=== PATIENT | male | born 1990 | race Caucasian/White ===

== ENCOUNTER 2020-02-13 14:07 | Emergency (ER) | payer OTHER ==
[2020-02-13] MEDS ORDERED: Acetaminophen/oxyCODONE 325-10 MG Tab PO ONE (14:30)
--- NOTE | 2020-02-13 15:09 | CR ---
Indication: Pain behind scapula. Fell. Technique: PA view of the chest. Two views of the left ribs. Comparison: None Findings: The heart is normal size. The lungs are clear. No infiltrate, pleural effusion, or pneumothorax is identified. No displaced left rib fractures are identified. Please note, the lower ribs are not included on the study Impression: No displaced left rib fractures. No pneumothorax. Dictated by Delmi Logan MD @ Feb 13 2020 3:07PM Signed by Dr. Delmi Logan @ Feb 13 2020 3:08PM
--- NOTE | 2020-02-13 15:17 | EDM.PDOC ---
ED HPI GENERAL MEDICAL PROBLEM - General Chief Complaint: General Stated Complaint: SICK Time Seen by Provider: 02/13/20 14:09 Source of Information: Reports: Patient History Limitations: Reports: No Limitations - History of Present Illness INITIAL COMMENTS - FREE TEXT/NARRATIVE: HISTORY AND PHYSICAL: History of present illness: Patient is a 29-year-old male who presents to the emergency room with complaints of left lateral and posterior rib pain post fall. 2 to 3 days ago he was moving an ice auger and had slipped on the ice falling on top of the auger resulting in pain and bruising to the left lateral chest wall. States he has pain with movement, taking in deep breaths or attempting to cough. Patient denies any fever, chills, headache, change in vision, syncope or near syncope. Denies any back pain, shortness of breath, hemoptysis or cough. Denies any abdominal pain, nausea, vomiting, diarrhea, constipation or dysuria. Has not noted any blood in urine or stool. Patient has been eating and drinking appropriately. Review of systems: As per history of present illness and below otherwise all systems reviewed and negative. Past medical history: As per history of present illness and as reviewed below otherwise noncontributory. Surgical history: As per history of present illness and as reviewed below otherwise noncontributory. Social history: See social history for further information Family history: As per history of present illness and as reviewed below otherwise noncontributory. Physical exam: General: Well developed and well nourished. Alert and orientated x 3. Nontoxic in appearance and in no acute distress. Vital signs are stable and have been reviewed by me. Nursing notes were reviewed. HEENT: Atraumatic, normocephalic, pupils equal and reactive bilaterally, negative for conjunctival pallor or scleral icterus, mucous membranes moist, TMs normal bilaterally, throat clear, neck supple, nontender, trachea midline. No drooling or trismus noted. No meningeal signs. No hot potato voice noted. Lungs: Clear to auscultation, breath sounds equal bilaterally, chest tender to the left lateral and posterior distal chest wall (See SKIN). Normal work of breathing, no accessory muscles used. Heart: S1S2, regular rate and rhythm without overt murmur Abdomen: Soft, nondistended, nontender. Negative for masses or hepatosplenomegaly. Negative for costovertebral tenderness. Skin: Healing bruising noted to the left lateral chest wall. Otherwise skin is intact, warm, dry. No lesions or rashes noted. Hematologic: No petechiae or purpra. Mucosa appropriate color and normal nail bed color and refill. Extremities: Atraumatic, moves all extremities per self without difficulty or deficits. Neurovascular unremarkable. Neuro: Awake, alert, oriented. Cranial nerves II through XII unremarkable. Cerebellum unremarkable. Motor and sensory unremarkable throughout. Exam nonfocal. Psychiatric: Mood and affect are appropriate. Normal thought process. Answering questions appropriately. Notes: Chest x-ray shows no displaced fractures, acute injury or pneumothorax. I have talked with the patient about today's findings, in addition to providing specific details for plan of care. Patient was given education on incentive spirometer and use for home. Reassessment at the time of disposition demonstrates that the patient is in no acute distress. The patient is stable for discharge, counseling was provided and we discussed in great detail signs and symptoms that would prompt them to return to the Emergency Department. Medication, follow up and supportive care measures were reviewed and discussed. Voices understanding and is agreeable to plan of care. Denies any further questions or concerns at this time. Diagnostics: CXR w/ rib Therapeutics: Percocet, incentive spirometer Prescription: Percocet Impression: Rib injury, left Left chest contusion Plan: 1. Today your x-ray show no acute fractures. You may alternate ice/heat (which ever is most comfortable). Please avoid not taking deep breaths and coughing as this can cause complications down the road. I would like you to use the incentive spirometer 4-5 times daily, 10 round each time. 2. You can alternate Tylenol and ibuprofen as needed for pain management. Percocet for moderate to severe pain. This medication may cause drowsiness so do not take it while driving or needing to be functioning outside of the house. 3. We encourage you to follow up with your primary care provider and/or recommended specialist in the next few days for re-evaluation and further car e/management. If your symptoms should worsen, new symptoms develop or any of the signs and symptoms we discussed should arise please return to the emergency room or call 911 (if needed). Definitive disposition and diagnosis as appropriate pending reevaluation and review of above. L back Pain Score (Numeric/FACES): 8 - Related Data Allergies Allergy/AdvReac Type Severity Reaction Status Date / Time No Known Allergies Allergy Verified 02/13/20 14:35 Home Meds: Home Meds Acetaminophen/oxyCODONE [Percocet 325-10 MG] 1 tab PO Q6H PRN #15 tab 02/13/20 [Rx] Past Medical History Musculoskeletal History: Reports: None - Past Surgical History Musculoskeletal Surgical History: Reports: Other (See Below) Other Musculoskeletal Surgeries/Procedures:: R femoral fx Social & Family History - Family History Family Medical History: No Pertinent Family History - Tobacco Use Tobacco Use Status *Q: Never Tobacco User Second Hand Smoke Exposure: No - Caffeine Use Caffeine Use: Reports: Coffee - Recreational Drug Use Recreational Drug Use: No ED ROS GENERAL - Review of Systems Review Of Systems: Comprehensive ROS is negative, except as noted in HPI. ED EXAM, GENERAL - Physical Exam Exam: See Below (See dictation) Course - Vital Signs Last Recorded V/S: Last Vital Signs Temp 97.6 F 02/13/20 14:28 Pulse 81 02/13/20 14:28 Resp 18 02/13/20 14:28 BP 114/89 02/13/20 14:28 Pulse Ox 100 02/13/20 14:28 - Orders/Labs/Meds Meds: Medications Discontinued Medications Generic Name Dose Route Start Last Admin Trade Name Gerhard PRN Reason Stop Dose Admin Oxycodone/Acetaminophen 1 tab 02/13/20 14:30 Percocet 325-10 Mg PO 02/13/20 14:31 ONETIME ONE Departure - Departure Time of Disposition: 15:17 Disposition: Home, Self-Care 01 Clinical Impression: Rib injury Contusion of left chest wall Qualifiers: Encounter type: initial encounter Qualified Code(s): S20.212A - Contusion of left front wall of thorax, initial encounter - Discharge Information Prescriptions: Acetaminophen/oxyCODONE [Percocet 325-10 MG] 1 tab PO Q6H PRN #15 tab PRN Reason: Pain Instructions: Contusion, [id number] Referrals: PCP,None [Primary Care Provider] - Additional Instructions: The following information is given to patients seen in the emergency department who are being discharged to home. This information is to outline your options for follow-up care. We provide all patients seen in our emergency department with a follow-up referral. The need for follow-up, as well as the timing and circumstances, are variable depending upon the specifics of your emergency department visit. If you don't have a primary care physician on staff, we will provide you with a referral. We always advise you to contact your personal physician following an emergency department visit to inform them of the circumstance of the visit and for follow-up with them and/or the need for any referrals to a consulting specialist. The emergency department will also refer you to a specialist when appropriate. This referral assures that you have the opportunity for follow-up care with a specialist. All of these measure are taken in an effort to provide you with optimal care, which includes your follow-up. Under all circumstances we always encourage you to contact your private physician who remains a resource for coordinating your care. When calling for follow-up care, please make the office aware that this follow-up is from your recent emergency room visit. If for any reason you are refused follow-up, please contact the [facility] Emergency Department at and asked to speak to the emergency department charge nurse. [facility] [address] [place] [address] [id number] Thank you for choosing the [facility] emergency department in [place] for your medical needs today. It was a pleasure caring for you. Today you were seen in the emergency department for rib injury. 1. Today your x-ray show no acute fractures. You may alternate ice/heat (which ever is most comfortable). Please avoid not taking deep breaths and coughing as this can cause complications down the road. I would like you to use the incentive spirometer 4-5 times daily, 10 round each time. 2. You can alternate Tylenol and ibuprofen as needed for pain management. Percocet for moderate to severe pain. This medication may cause drowsiness so do not take it while driving or needing to be functioning outside of the house. 3. We encourage you to follow up with your primary care provider and/or recommended specialist in the next few days for re-evaluation and further care/management. If your symptoms should worsen, new symptoms develop or any of the signs and symptoms we discussed should arise please return to the emergency room or call 911 (if needed). Sepsis Event Note (ED) - Evaluation Sepsis Screening Result: No Definite Risk - Focused Exam Vital Signs: Vital Signs Temp Pulse Resp BP Pulse Ox 02/13/20 14:28 97.6 F 81 18 114/89 100
== END 2020-02-13 15:32 | disposition home or self-care (01) ==
LOC: MW.ED 14:07
DX: S20.212A Contusion of left front wall of thorax, initial encounter (principal); W00.0XXA Fall on same level due to ice and snow, initial encounter
CPT/HCPCS: 71101; 99283; A9270